=== PATIENT | female | born 1975 | race Caucasian/White ===

== ENCOUNTER 2019-07-12 19:22 | Emergency (ER) | payer OTHER ==
[~2019-07-12] VITALS: Ht 160 cm; Wt 63.5 kg
[~2019-07-12 19:22] MED LIST: ADVIL200 M2 PO; BACLOFEN 10MG T10 M1 PO; CARISOPRODOL 3350 MG PO; LORTAB 5 MG/5001 TA1 PO; NEURONTIN 400400 M1 PO; NEURONTIN600 MG PO; PHENERGAN 25 MG25 MG PO; PROBIOTIC1 EAC1 PO; ULTRAM 50MG TAB50 MG PO; VICOPROFEN 2001 EACH; VISTARIL 25 MG25 M1 PO
[2019-07-12] MEDS ORDERED: LISINOPRIL PO (19:28)
[2019-07-12] MEDS ORDERED: LAMICTAL200 MG PO (19:29)
[2019-07-12] MEDS ORDERED: PERCOCET 10-321 EAC1 PO (19:30)
[2019-07-12] MEDS ORDERED: AMOXICILLIN 50500 MG PO (20:07)
[2019-07-12] MEDS ORDERED: TRAMADOL 50 MG50 MG PO (20:07)
[2019-07-12 20:18] VITALS: BP 159/110
== END 2019-07-12 20:19 | disposition home or self-care (01) ==
LOC: ER 19:22
DX: K02.9 Dental caries, unspecified (principal); K08.89 Other specified disorders of teeth and supporting structures; Z88.5 Allergy status to narcotic agent; F17.200 Nicotine dependence, unspecified, uncomplicated; Z88.6 Allergy status to analgesic agent

== ENCOUNTER 2019-09-10 14:56 | Emergency (ER) | payer OTHER ==
[~2019-09-10] VITALS: Ht 160 cm; Wt 70.3 kg
[~2019-09-10 14:56] MED LIST changes: +AMOXICILLIN 50500 MG PO; +LAMICTAL200 MG PO; +LISINOPRIL PO; +PERCOCET 10-321 EAC1 PO; +TRAMADOL 50 MG50 MG PO
[2019-09-10 14:57] VITALS: BP 138/91
[2019-09-10] MEDS ORDERED: PRINIVIL10 MG PO (15:03)
[2019-09-10] MEDS ORDERED: PREDNISONE 10 M10 MG PO (15:24)
[2019-09-10] MEDS ORDERED: ULTRAM 50MG TAB50 MG PO (15:24)
[2019-09-10] MEDS ORDERED: NORFLEX100 MG PO (15:25)
== END 2019-09-10 15:40 | disposition home or self-care (01) ==
LOC: ER 14:56
DX: M54.12 Radiculopathy, cervical region (principal); G89.29 Other chronic pain; M54.32 Sciatica, left side; F17.210 Nicotine dependence, cigarettes, uncomplicated; Z88.6 Allergy status to analgesic agent; Z88.5 Allergy status to narcotic agent